=== PATIENT | female | born 1990 | race Two or more races ===

== ENCOUNTER 2022-04-10 07:40 | Inpatient (IN) | payer OTHER ==
[~2022-04-10] VITALS: Ht 149.9 cm; Wt 72.6 kg
[2022-04-11] MEDS ORDERED: PRENATAL + DHA1 EAC1 (08:51)
== END 2022-04-12 11:24 | disposition home or self-care (01) | DRG 807 ==
LOC: OB/GYN 07:40 → LDR 07:40 → OB/GYN 15:02
PROVIDERS: ADMIT Obstetrics & Gynecology; ATTEND Obstetrics & Gynecology
PROC: 10E0XZZ Delivery of Products of Conception, External Approach (ICD-10-PCS; principal; 2022-04-10)
PROC: 0KQM0ZZ Repair Perineum Muscle, Open Approach (ICD-10-PCS; 2022-04-10)
PROC: 4A1HXCZ Monitoring of Products of Conception, Cardiac Rate, External Approach (ICD-10-PCS; 2022-04-10)
DX: O70.1 Second degree perineal laceration during delivery (principal); Z37.0 Single live birth; O99.824 Streptococcus B carrier state complicating childbirth; Z3A.38 38 weeks gestation of pregnancy; Z20.822 Contact with and (suspected) exposure to COVID-19